=== PATIENT | female | born 1955 | race Caucasian/White ===

== ENCOUNTER 2024-06-29 06:56 | Day surgery (SDC) | payer MEDICARE, BC ==
[2024-06-29] MEDS ORDERED: fentaNYL 100 MCG/2 ML SDV ONE (07:18)
[2024-06-29] MEDS ORDERED: Propofol 200 MG/20 ML SDV ONE (07:18)
[2024-06-29] MEDS: Lactated Ringers 1,000 ML IV SCH (07:37)
== END 2024-06-29 10:25 | disposition home or self-care (01) ==
LOC: JP.SDS 06:56
PROVIDERS: ATTEND Surgery
DX: R13.10 Dysphagia, unspecified (principal); K20.0 Eosinophilic esophagitis; Z98.84 Bariatric surgery status; I10 Essential (primary) hypertension; E11.9 Type 2 diabetes mellitus without complications; K21.9 Gastro-esophageal reflux disease without esophagitis; Z88.8 Allergy status to other drugs, medicaments and biological substances
CPT/HCPCS: 00731; 43239; 43245; 88305; C1726; J2704; J3010; J7120